=== PATIENT | female | born 1945 | race Caucasian/White ===

== ENCOUNTER → 2016-10-11 | Day surgery (SDC) | payer MEDICARE, OTHER ==
--- NOTE | 2016-10-10 09:54 | MH ---
cc: REINALDO SMITH MD, THOMAS DATE OF ADMISSION: October 11, 2016 DATE OF 1945 REASON FOR ADMISSION Vaginal suspension. HISTORY OF PRESENT ILLNESS The patient is a 71-year-old white female, 3, para 3, who is having issues with pelvic organ prolapse. This was mainly an apical defect, although there is some enterocele component suspected. She had a vaginal hysterectomy and anterior and posterior repair by Dr. Motley in 2013. She has noted increasing issues with pelvic organ pressure and discomfort. She has been using a pessary for the last several months but wants to move to definitive surgical correction. PAST MEDICAL HISTORY 1. Hypertension. 2. Hypothyroidism. 3. Gastroesophageal reflux disease. MEDICATIONS 1. Amlodipine 5 mg daily. 2. Hydrochlorothiazide 12.5 mg daily. 3. Synthroid 50 mcg daily. 4. Omeprazole 20 mg daily. ALLERGIES SULFA MEDS. LISINOPRIL causes cough. PAST SURGICAL HISTORY 1. Cholecystectomy. 2. Hernia repair. 3. Vaginal hysterectomy with anterior and posterior repair. OBSTETRICAL HISTORY Three vaginal deliveries. GYNECOLOGIC HISTORY No STDs or abnormal Pap smears. SOCIAL HISTORY Does not smoke, use alcohol or drugs. She has a 10 pack-year history of smoking but quit in 1978. FAMILY HISTORY Noncontributory. REVIEW OF SYSTEMS As above. No chest pain, orthopnea, PND. No nausea, vomiting, fever or chills. No vaginal bleeding or discharge. Pelvic organ prolapse symptoms are mainly pressure and discomfort. PHYSICAL EXAMINATION Vital Signs: She is afebrile. Vital signs stable. Blood pressure is 150/80. Height 5'3", weight 158, BMI is 28. General: Patient is alert and oriented, in no acute distress. No sign of cognitive dysfunction or depression. HEENT: Within normal limits. Neck: Supple. No JVD. Chest: Clear. Heart: Regular rate and rhythm. Abdomen: Soft, nontender. No hepatosplenomegaly. No CVA tenderness. Pelvic: Exam will be detailed under anesthesia. In the office we note POP-Q score: Aa is -3, Ap is -1. Point C is +2. Levator strength is 3/5 and sacral nerve reflexes are normal. Extremities: Normal skin, without rashes. Neuro: Exam nonfocal. No DVT signs. ASSESSMENT Patient with pelvic organ prolapse, Stage III, apical compartment. The patient and I discussed options for management and treatment. She is aware of the risks, benefits and alternatives of the planned procedure including damage to surrounding organs, bleeding, infection, failure of repair, pain with intercourse, urinary incontinence postoperatively and other issues germane to the procedure. The patient has made informed choice to proceed. We will use DVT prophylaxis with sequential compression device and antibiotic prophylaxis with IV cephalosporin. Anticipate outpatient procedure. MD BENITA Walker/IRENE /9:16 AM /9:53 AM KAI
[~2016-10-11] VITALS: Ht 160 cm; Wt 71.1 kg
[~2016-10-11] MED LIST: ADVI200C5 PO; AMLO5TAB2 PO; CIPR-9 PO; CITRTAB7 PO; COLA100C PO; COLA100C3 PO; COVATAB PO; DO NOT ADM ANY ANTICOAGULANT DRUGS XX PRN; ESTR42.5V VAGINAL; FAMOTIDINE 20 MG/2 ML VIAL ONE; FLUORESCEIN SOD 10% SOLN 500 MG/5 ML AMP ONE; GABA600T PO; HYDR12.56 PO; INSULIN HUMAN REGULAR 1,000 UNITS/10 ML VIAL SQ PRN; KETOROLAC TROMETHAMINE 10 MG TAB PO PRN; KETOROLAC TROMETHAMINE 30 MG/ML (IVP) VIAL IV PUSH PRN; KETOROLAC TROMETHAMINE 60 MG/2 ML (IM) VIAL IM ONE; KETOROLAC TROMETHAMINE 60 MG/2 ML (IM) VIAL IM PRN; LACTATED RINGER'S 1000 ML IV SCH; LEVO.05 PO; LIDOCAINE 1%/EPINEPHrine 1:100,000 SOLN 20 ML VIAL ONE; METHYLENE BLUE 10 MG/ML VIAL ONE; METOPROLOL TARTRATE 25 MG TAB PO PRN; MIDAZOLAM HCL 2 MG/2 ML VIAL ONE; MULT-120 PO; MULT1TAB46 PO; NEOSTIGMINE 3 MG/3 ML SYR IV ONE; NITR100C4 PO; OMEP20CA2 PO; ONDANSETRON HCL 4 MG/2 ML VIAL IV PRN; ONDANSETRON HCL 4 MG/2 ML VIAL IV PUSH ONE; PROPOFOL 200 MG/20 ML AMP IV ONE; PSEU30TA2 PO; SODIUM CHLORID 0.9% 500 ML IV SCH; SUDO60TA2 PO; TURM500C PO; TURM500C3 PO; VITA100021 SL; VITA500C9 CHEW; fentaNYL CITRATE 250 MCG/5 ML AMP ONE
[2016-10-11 06:05] VITALS: BP 131/67; PULSE 81; RESP 16; TEMP 97.1; O2SAT 96
[2016-10-11] MEDS: ceFAZolin 1,000 MG/NS 100 ML IV SCH ×4 (07:18)
[2016-10-11 10:35] VITALS: BP 117/59; PULSE 77; RESP 16; TEMP 97.9; O2SAT 98
--- NOTE | 2016-10-11 13:04 | MP ---
cc: REINALDO SMITH MD, THOMAS G. M.D. DATE OF SURGERY October 11, 2016 PREOPERATIVE DIAGNOSIS Vaginal vault prolapse following prior hysterectomy. POSTOPERATIVE DIAGNOSIS Vaginal vault prolapse following prior hysterectomy with posterior compartment defect with enterocele. PROCEDURE 1. Sacrospinous ligament suspension of vagina. 2. Posterior repair with enterocele repair. SURGEON Dr. Smith ANESTHESIA General endotracheal. BLOOD LOSS 25 cc. URINE OUTPUT 200 cc. SKIN CARE INSTRUCTOR Jenkins staff x 2. FINDINGS External genitalia is normal. POP-Q score: Aa is -3, Ap is 0. Point C is +2. Total vaginal length is 10. Genital hiatus is 5. Perineal body is 5. Following repair, Aa is -3, Ap is -3. Point C is -8. Total vaginal length is 8. Remainder of POP-Q score unchanged. Rectal exam is normal following repair. SPECIMENS None. COMPLICATIONS None. DISPOSITION To recovery room stable. COUNTS Needle and sponge count correct. DRAINS Brown catheter. ANTIBIOTIC PROPHYLAXIS Ancef 1 gram. DVT PROPHYLAXIS Sequential compression device. TIME-OUT PROCEDURE Per protocol SUMMARY OF INDICATIONS FOR PROCEDURE Patient with symptomatic apical vaginal prolapse. The patient wanted to avoid mesh and opted for a vaginal approach to repair. PROCEDURE The patient was taken to the operating theatre, identified, prepped and draped in fashion appropriate for the planned procedure. She was in dorsal lithotomy position with careful attention paid to placement of the of legs in stirrups to avoid undue stress to sensitive neurovascular structures. Above findings noted. Neurovascular integrity documented. Brown catheter was placed. Methylene blue was instilled into the bladder. The posterior and apical defects were identified. The posterior defect was more obvious with the patient under anesthesia than had been noted in the office. The posterior vaginal mucosa was infiltrated with epinephrine/lidocaine solution. Midline incision was made with sharp scissors. With one finger in the rectum to give traction and countertraction, we took this incision up to the vaginal apex. We developed the perirectal space on the right, identified the ischial spine and the sacrospinous ligament. A suture of 0 Prolene was placed using the Capio device through the sacrospinous ligament. A delayed absorbable suture was also used approximately 0.5 cm medial to the Prolene suture. The Prolene suture was affixed to the vaginal apex with a michael type stitch. The delayed absorbable was a simple irgghen-nld-lcodxsm stitch. The remainder of enterocele repair and posterior repair was performed in standard fashion with delayed absorbable suture. The vaginal cuff was trimmed. The vaginal mucosa was closed with a running Vicryl suture. Once we got down to about snf of the vaginal length, we cinched down the support sutures with good support with minimal deviation to the right. The remainder of the incision was closed with a running Vicryl suture. Hemostatic Matrix was used for additional reassurance for hemostasis. Rectal exam confirmed there was no suture bridge nausea nor was there any compromise of the rectum. The suture line was intact and hemostatic. The procedure was concluded. The patient went to Recovery in stable condition. The patient will be discharged for home if she meets criteria with standard postoperative precautions. MD BENITA Walker/IRENE /11:48 AM /12:53 PM
== END | disposition home or self-care (01) ==
LOC: HSDC 05:50
PROVIDERS: ATTEND Obstetrics & Gynecology Gynecology
DX: N99.3 Prolapse of vaginal vault after hysterectomy (principal); I10 Essential (primary) hypertension; Z90.710 Acquired absence of both cervix and uterus
CPT/HCPCS: 00840; 57240; 57282; J0690; J1885; J2250; J2405; J2710; J3010; J7120

== ENCOUNTER → 2017-03-27 | Outpatient (CLI) | payer MEDICARE, OTHER ==
[~2017-03-27] MED LIST changes: -DO NOT ADM ANY ANTICOAGULANT DRUGS XX PRN; -FAMOTIDINE 20 MG/2 ML VIAL ONE; -FLUORESCEIN SOD 10% SOLN 500 MG/5 ML AMP ONE; -GABA600T PO; -INSULIN HUMAN REGULAR 1,000 UNITS/10 ML VIAL SQ PRN; -KETOROLAC TROMETHAMINE 10 MG TAB PO PRN; -KETOROLAC TROMETHAMINE 30 MG/ML (IVP) VIAL IV PUSH PRN; -KETOROLAC TROMETHAMINE 60 MG/2 ML (IM) VIAL IM ONE; -KETOROLAC TROMETHAMINE 60 MG/2 ML (IM) VIAL IM PRN; -LACTATED RINGER'S 1000 ML IV SCH; -LIDOCAINE 1%/EPINEPHrine 1:100,000 SOLN 20 ML VIAL ONE; -METHYLENE BLUE 10 MG/ML VIAL ONE; -METOPROLOL TARTRATE 25 MG TAB PO PRN; -MIDAZOLAM HCL 2 MG/2 ML VIAL ONE; -NEOSTIGMINE 3 MG/3 ML SYR IV ONE; -NITR100C4 PO; -ONDANSETRON HCL 4 MG/2 ML VIAL IV PRN; -ONDANSETRON HCL 4 MG/2 ML VIAL IV PUSH ONE; -PROPOFOL 200 MG/20 ML AMP IV ONE; -SODIUM CHLORID 0.9% 500 ML IV SCH; -fentaNYL CITRATE 250 MCG/5 ML AMP ONE
[2017-03-27 10:48] LABS: AUTOMATED NEUTROPHIL # 3.7 TH/MM3 (1.8-7.7); BASOPHIL % 0.8 % (0.0-2.0); EOSINOPHIL # 0.2 TH/MM3 (0-0.4); EOSINOPHIL % 3.9 % (0.0-4.0); HEMO FLAGS DIFF FINAL; LYMPH % 17.3 % (9.0-44.0); LYMPHOCYTE # 0.9 TH/MM3 (1.0-4.8); MEAN CELL VOLUME 88.3 FL (80.0-100.0); MEAN CORPUSCULAR HEMOGLOBIN 29.5 PG (27.0-34.0); MEAN CORPUSCULAR HGB CONC 33.4 % (32.0-36.0); PLATELET COUNT 315 TH/MM3 (150-450); RED BLOOD COUNT 5.21 MIL/MM3 (4.00-5.30); RED CELL DISTRIBUTION WIDTH 14.4 % (11.6-17.2); WHITE BLOOD COUNT 5.4 TH/MM3 (4.0-11.0)
[2017-03-27 11:11] LABS: ANION GAP 10 MEQ/L (5-15); AST (GOT) 19 U/L (15-37); BICARBONATE 25.6 MEQ/L (21.0-32.0); BLOOD UREA NITROGEN 22 MG/DL (7-18); CHLORIDE 104 MEQ/L (98-107); GLOMERULAR FILTRATION RATE 75 ML/MIN (>89); GLUCOSE,FASTING 79 MG/DL (74-99); POTASSIUM 3.8 MEQ/L (3.5-5.1); SODIUM (NA) 140 MEQ/L (136-145)
[2017-03-27 11:12] LABS: ALT (GPT) 32 U/L (10-53)
[2017-03-27 11:14] LABS: ALKALINE PHOSPHATASE 77 U/L (45-117); TOTAL BILIRUBIN ADULT 0.3 MG/DL (0.2-1.0)
[2017-03-27 11:25] LABS: BLOOD, URINE NEG (NEG); COMMENT (UR) CULT NOT INDICATED; CULTURE IF INDICATED CULT NOT INDICATED; GLUCOSE,URINE NEG (NEG); KETONE, URINE NEG (NEG); NITRITE,URINE NEG (NEG); SQUAMOUS EPITHELIAL CELL URINE <1 /hpf (0-5); URINE COLOR YELLOW (YELLW/STRAW)
--- NOTE | 2017-03-27 16:48 | EKG ---
Date Performed: 03/27/2017 Time Performed: 10:09:56 PTAGE: 71 years EKG: Sinus rhythm POSSIBLE LEFT ATRIAL ENLARGEMENT LOW QRS VOLTAGE IN PRECORDIAL LEADS Since previous tracing, no sign ificant change noted BORDERLINE ECG PREVIOUS TRACING : 10/03/2016 09.52.12 DOCTOR: Gina Muñoz Interpretating Date/Time 03/27/2017 17:25:20
== END ==
LOC: CPRE 09:38
PROVIDERS: ATTEND Obstetrics & Gynecology Gynecology
DX: Z01.812 Encounter for preprocedural laboratory examination (principal); Z01.810 Encounter for preprocedural cardiovascular examination; N81.10 Cystocele, unspecified; R94.31 Abnormal electrocardiogram [ECG] [EKG]
CPT/HCPCS: 36415; 80053; 81001; 85025; 93005

== ENCOUNTER → 2017-04-18 | Day surgery (SDC) | payer MEDICARE, OTHER ==
--- NOTE | 2017-03-28 09:48 | MH ---
cc: REINALDO SMITH MD DATE OF ADMISSION: 04/18/2017 DATE OF : 1945 REASON FOR ADMISSION Anterior repair. HISTORY OF PRESENT ILLNESS The patient is a 71-year-old white female, 3, para 3, who has issues with pelvic organ prolapse. She had a prior hysterectomy with anterior repair in 2013. She had a sacrospinous ligament suspension, posterior repair and enterocele repair in October 2016. She did will post-op but noted recurrence of anterior compartment defect. She has had issues with urinary retention and wants to proceed with repair. PAST MEDICAL HISTORY 1. Hypertension. 2. Hypothyroidism. Otherwise negative for heart, lung, liver disease, diabetes or stroke. MEDICATIONS 1. Amlodipine 5 mg q. daily. 2. Hydrochlorothiazide 12.5 mg q. daily. 3. Synthroid 50 mcg q. daily. ALLERGIES 1. LISINOPRIL. 2. SULFA. PAST SURGICAL HISTORY 1. As above. 2. Appendectomy. 3. Hernia repair. 4. Rhinoplasty. 5. Right hip procedure. 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 Hysterectomy for prolapse. Other surgical procedures for pelvic organ prolapse as well. OB HISTORY Two vaginal deliveries. FAMILY HISTORY Noncontributory. SOCIAL HISTORY She does not smoke, drink alcohol or take drugs. . Good social support. REVIEW OF SYSTEMS As above. Issues with pelvic organ prolapse, pelvic pressure and urinary retention. PHYSICAL EXAMINATION VITAL SIGNS: She is afebrile. Vital signs stable. Blood pressure 120/70. GENERAL: The patient is alert and oriented in no acute distress. No sign of cognitive dysfunction or depression. HEENT: Within normal limits. NECK: Supple. No JVD. CHEST: Clear. HEART: Regular rate and rhythm. ABDOMEN: Soft, nontender. No hepatosplenomegaly. BACK: No CVA tenderness. PELVIC: Exam in the office shows Aa is 0; point C is -8; Ap is -2. Postvoid residual is 180 cc. Further exam under anesthesia. EXTREMITIES: Normal. SKIN: Without rashes. NEUROLOGIC: Nonfocal. No DVT signs. ASSESSMENT Patient with pelvic organ prolapse, anterior compartment defect with retention. PLAN At this point we discussed the risks, benefits and alternatives of the planned procedure including damage to surrounding organs, bleeding, infection, possibility of incontinence as well as dyspareunia. Prolonged catheterization was also discussed. At this point will proceed with anterior compartment repair and cystoscopy for the retention issue. Anticipate outpatient procedure. Will use DVT prophylaxis with sequential compression device and Ancef 2 grams for IV prophylaxis. MD BENITA Walker/ISSA /9:22 AM /9:34 AM
[~2017-04-18] VITALS: Ht 160 cm; Wt 65.5 kg
[~2017-04-18] MED LIST changes: +*morphine SULFATE 8 MG/ML PERIprocedure ONLY ONE; +ACETAMINOPHEN 1000 MG/100 ML VIAL IV ONE; -ADVI200C5 PO; +CHLORHEXIDINE GLUCONATE 2 % 1 PACK (2 CLOTHS) TOPICAL PRN; -CIPR-9 PO; -COLA100C3 PO; +DO NOT ADM ANY ANTICOAGULANT DRUGS PRN; +FLUORESCEIN SOD 10% SOLN 500 MG/5 ML AMP ONE; +IBUP200C17 PO; +INSULIN HUMAN REGULAR 1,000 UNITS/10 ML VIAL SQ PRN; +KETO10 PO; +KETOROLAC TROMETHAMINE 30 MG/ML (IVP) VIAL IV PUSH PRN; +KETOROLAC TROMETHAMINE 60 MG/2 ML (IM) VIAL IM ONE; +LACTATED RINGER'S 1000 ML IV PRN; +LIDOCAINE 1%/EPINEPHrine 1:100,000 SOLN 20 ML VIAL ONE; +MACR100C2 PO; +METHYLENE BLUE 10 MG/ML VIAL OTHER ONE; +METOPROLOL TARTRATE 25 MG TAB PO PRN; +MIDAZOLAM HCL 2 MG/2 ML VIAL ONE; -MULT-120 PO; +ONDANSETRON HCL 4 MG/2 ML VIAL IV PUSH ONE; +ONDANSETRON HCL 4 MG/2 ML VIAL IV PUSH PRN; +POVIDONE IODINE 5% (ANTISEPSIS KIT) 4 APPLICATIONS EACH NARE PRN; +PROPOFOL 200 MG/20 ML AMP IV ONE; -PSEU30TA2 PO; +SODIUM CHLORID 0.9% 500 ML IV PRN; +TRAM50TA PO; -TURM500C PO; +VITA250C3 CHEW; -VITA500C9 CHEW; +ceFAZolin 2 GM PREMIX 50 ML ONE; +ePHEDrine/NS 25 MG/5 ML SYR IV ONE; +traMADol HCL 50 MG TAB PO PRN
[2017-04-18 06:30] VITALS: BP 134/66; PULSE 83; RESP 16; TEMP 97.7; O2SAT 95
--- NOTE | 2017-04-18 10:08 | MP ---
cc: REINALDO SMITH MD DATE OF SURGERY 04/18/2017 PREOPERATIVE DIAGNOSES 1. Cystocele. 2. Urinary retention. POSTOPERATIVE DIAGNOSES 1. Cystocele. 2. Urinary retention. 3. Enterocele. 4. Rectocele. PROCEDURE 1. Anterior and posterior repair. 2. Cystoscopy coupled with a diagnosis of urinary retention. 3. Vaginal apical suspension with coccygeus ligaments. SURGEON MD Talat ANESTHESIA General endotracheal BLOOD LOSS 50 cc RN BARIATRIC [place] staff x 2. FLUIDS 1000 cc crystalloid. URINE OUTPUT 300 cc. FINDINGS External genitalia normal. POP-Q score: Aa is 0, Ap is -1. Point C is -8. Total vaginal length is 10. Genital hiatus is 4. Perineal body is 6. Cystoscopy shows mild trigonitis but no significant etiology noted for obstruction. The urethra was normal. There was no diverticula. There was no obstruction in the urethra. Dome and base of bladder unremarkable except for the mild trigonitis. Ureteral orifices patent x 2. Rectal exam normal following repair. SPECIMENS None. COMPLICATIONS None. DISPOSITION To the recovery room stable. COUNTS Needle and sponge counts correct. DRAINS Brown catheter. CONDITION Patient went to Recovery stable. ANTIBIOTIC PROPHYLAXIS Ancef 2 grams. DVT PROPHYLAXIS Sequential compression device. TIME-OUT PROCEDURE Per protocol. SUMMARY OF INDICATIONS FOR PROCEDURE The patient with a history of vaginal suspension and posterior repair, had developed issues with anterior compartment prolapse and urinary retention. The patient has been managed conservatively with a pessary for several months until she was able to schedule surgery. OPERATIVE PROCEDURE The patient was taken to the operating room theatre, prepped and draped in fashion for the planned procedure. She was in dorsal spine position with careful attention paid to placement of the legs in the stirrups to avoid undue stress to sensitive neurovascular structures. The above findings noted. Neurovascular integrity documented. Pessary removed, Brown catheter placed and methylene blue was instilled into the bladder The anterior compartment was notable for cystocele and anterior enterocele. The vaginal mucosa was grasped with Allis clamps, infiltrated with epinephrine/lidocaine solution. A midline incision was made from the apex to approximately 1 cm from the urethral meatus. Reflection of the bladder was uncomplicated. Cystocele repair performed in standard fashion with delayed absorbable suture. It was felt that the enterocele was best approached through the posterior compartment as there was some degree of apical descent as well and rectocele as well. Cystoscopy performed after the patient received fluorescein dye, 1 cc. Ureteral patency was documented and the above findings noted which showed no significant etiology to her retention other than the anterior compartment prolapse. The vaginal cuff was trimmed and then the vaginal mucosa was closed. The vaginal mucosa was closed with a series of tmpxep-ob-yvlyb sutures until and a running delayed absorbable suture. Hemostatic matrix was used for added reassurance for hemostasis. In the posterior apartment there was enterocele as noted above and some degree of rectocele. The introitus was actually relatively well supported and was a rather robust perineal body. The main repair was done in the upper half of the posterior compartment. Infiltration of epinephrine with lidocaine solution was performed. Midline incision was made. Enterocele was closed with delayed absorbable suture in standard fashion. There was no damage to bowel or rectum. Vaginal mucosa was trimmed. The rectocele was reduced with delayed absorbable suture. The vaginal mucosa was closed with a delayed absorbable suture as well. Hemostatic matrix was used for hemostasis. At this point the procedure was concluded. Suture lines were intact and hemostatic. Pop-Q score was as noted above. We had excellent anterior compartment support with an Aa of -3, Ap in the posterior compartment was -3. point C was 10, total vaginal length was 10. Genital hiatus remained at 5. Rectal exam showed no damage to the rectum. The procedure was concluded. The patient was reversed from anesthesia. She will undergo voiding trial and if meets criteria will be discharged from the PACU. MD BENITA Walker/IRENE /9:42 AM /9:55 AM
[2017-04-18 11:20] VITALS: BP 136/63; PULSE 89; RESP 18; O2SAT 96
== END | disposition home or self-care (01) ==
LOC: HSDC 05:49
PROVIDERS: ATTEND Obstetrics & Gynecology Gynecology
DX: N99.3 Prolapse of vaginal vault after hysterectomy (principal); R33.9 Retention of urine, unspecified; N30.30 Trigonitis without hematuria; I10 Essential (primary) hypertension; E03.9 Hypothyroidism, unspecified
CPT/HCPCS: 00942; 52000; 57260; 57282; J0131; J0690; J1885; J2250; J2270; J2405; J3010; J7120

== ENCOUNTER 2017-04-19 01:17 | Emergency (ER) | payer MEDICARE, OTHER ==
[~2017-04-19] VITALS: Ht 160 cm; Wt 65.0 kg
[~2017-04-19 01:17] MED LIST changes: -*morphine SULFATE 8 MG/ML PERIprocedure ONLY ONE; -ACETAMINOPHEN 1000 MG/100 ML VIAL IV ONE; -CHLORHEXIDINE GLUCONATE 2 % 1 PACK (2 CLOTHS) TOPICAL PRN; -DO NOT ADM ANY ANTICOAGULANT DRUGS PRN; -FLUORESCEIN SOD 10% SOLN 500 MG/5 ML AMP ONE; -INSULIN HUMAN REGULAR 1,000 UNITS/10 ML VIAL SQ PRN; -KETO10 PO; -KETOROLAC TROMETHAMINE 30 MG/ML (IVP) VIAL IV PUSH PRN; -KETOROLAC TROMETHAMINE 60 MG/2 ML (IM) VIAL IM ONE; -LACTATED RINGER'S 1000 ML IV PRN; -LIDOCAINE 1%/EPINEPHrine 1:100,000 SOLN 20 ML VIAL ONE; -MACR100C2 PO; -METHYLENE BLUE 10 MG/ML VIAL OTHER ONE; -METOPROLOL TARTRATE 25 MG TAB PO PRN; -MIDAZOLAM HCL 2 MG/2 ML VIAL ONE; -ONDANSETRON HCL 4 MG/2 ML VIAL IV PUSH ONE; -ONDANSETRON HCL 4 MG/2 ML VIAL IV PUSH PRN; -POVIDONE IODINE 5% (ANTISEPSIS KIT) 4 APPLICATIONS EACH NARE PRN; -PROPOFOL 200 MG/20 ML AMP IV ONE; -SODIUM CHLORID 0.9% 500 ML IV PRN; -TRAM50TA PO; -VITA250C3 CHEW; -ceFAZolin 2 GM PREMIX 50 ML ONE; -ePHEDrine/NS 25 MG/5 ML SYR IV ONE; -traMADol HCL 50 MG TAB PO PRN
[2017-04-19 01:18] VITALS: BP 161/87; PULSE 111; RESP 16; TEMP 98.7; O2SAT 95
[2017-04-19] MEDS ORDERED: VITA250C3 CHEW (01:44)
[2017-04-19] MEDS ORDERED: TRAM50TA PO (01:44)
[2017-04-19] MEDS ORDERED: LIDOCAINE 2% JELLY 30 ML TUBE ONE (02:42)
--- NOTE | 2017-04-19 02:57 | PD ---
HPI Chief Complaint: Complaint Time Seen by Provider: 02:15 Travel History International Travel<30 days: No Contact w/Intl Traveler<30days: No Traveled to known affect area: No History of Present Illness HPI 71 year-old woman, just had a bladder suspension type surgery with Dr. Gilliland today. Since then she has not been able to void. She voided initially following the surgery. She has some lower abdominal discomfort. She also some vaginal bleeding. History Past Medical History Narrative Medical Hypertension Hypothyroidism Previous surgery for pelvic floor relaxation and cystocele Social History Alcohol Use: No Tobacco Use: No Allergies-Medications (Allergen,Severity, Reaction): Coded Allergies: Lisinopril (Verified Allergy, Severe, THROAT SWELLING, ITCHING, 04/18/17) Sulfa (Verified Allergy, Intermediate, UNKNOWN, 04/18/17) Reported Meds & Prescriptions Reported Meds & Active Scripts Active Reported Vitamin C (Ascorbic Acid) 250 Mg Chew 250 Mg CHEW DAILY Tramadol (Tramadol HCl) 50 Mg Tab 50 Mg PO Q6H PRN Advil Liqui-Gels (Ibuprofen) 200 Mg Capsule 200 Mg PO DAILY Pseudoephedrine (Pseudoephedrine HCl) 60 Mg Tab 30 Mg PO DAILY PRN Turmeric (Turmeric (Curcuma Longa)) 500 Mg Cap 1 Cap PO BID Multi Vitamin Daily (Multiple Vitamin) 1 Tab Tab 1 Tab PO DAILY Estrace Vaginal (Estradiol) 0.01% Cream 1 Gm VAGINAL EVERY OTHER DAY PRN Colace (Docusate Sodium) 100 Mg Capsule 1 Cap PO BID Citracal + D3 Maximum (Calcium Citrate-Vitamin D) 315-250 Mg-Unit Tab 1 Tab PO BID Vitamin B-12 (Cyanocobalamin) 1,000 Mcg Subl 1,000 Mcg SL DAILY Omeprazole 20 Mg Cap 20 Mg PO BID Synthroid (Levothyroxine Sodium) 50 Mcg Tab 50 Mcg PO HS Covaryx Hs (Estrogens, Esterified-Methyltestosterone) 0.625-1.25 Mg Tab PO DAILY Hydrochlorothiazide 12.5 Mg Tab 12.5 Mg PO DAILY Amlodipine (Amlodipine Besylate) 5 Mg Tab 5 Mg PO DAILY Review of Systems Except as stated in HPI: all other systems reviewed are Neg Physical Exam Narrative GENERAL: Well-appearing 71 year-old woman, no acute distress. SKIN: Focused skin assessment warm/dry. CARDIOVASCULAR: Regular rate and rhythm. No murmur appreciated. RESPIRATORY: No accessory muscle use. Clear to auscultation. Breath sounds equal bilaterally. GASTROINTESTINAL: Abdomen soft, non-tender, nondistended. Hepatic and splenic margins not palpable. : A lot of irritation of the vaginal introitus and some bleeding. MUSCULOSKELETAL: No obvious deformities. Data Data Last Documented VS Vital Signs Date Time Temp Pulse Resp B/P Pulse Ox O2 Delivery O2 Flow Rate FiO2 04/19/17 01:18 98.7 111 16 161/87 95 Room Air Orders Ed Poc Ultrasound (04/19/17 ) Urinary Catheter Insert/Apply (04/19/17 02:39) Lidocaine 2% Jelly (Xylocaine 2% Jelly) (04/19/17 02:42) MDM Medical Decision Making Medical Screen Exam Complete: Yes Emergency Medical Condition: Yes Differential Diagnosis Urinary retention, injury to the bladder, other Narrative Course Medical decision making This 71-year-old woman who presents to the emergency department with what appears to be acute urinary retention. He spoke with noa Curry for Brown catheter placement in follow-up in his office tomorrow. Procedures Procedure Narrative Point of care ultrasound: Focus transabdominal ultrasounds perform immediate the bedside to evaluate for bladder distention. His approximate 500 mL some urine in the bladder. Diagnosis Primary Impression: Acute urinary retention Additional Instructions: Follow-up with Dr. Gilliland tomorrow. Return to the emergency department for any new or worsening symptoms. Med/Other Pt SpecificInfo: No Change to Meds Disposition: 01 DISCHARGE HOME Condition: Stable Luis Haynes MD Apr 19, 2017 02:57
[2017-04-19] MEDS ORDERED: MACR100C2 PO (11:11)
[2017-04-19] MEDS ORDERED: KETO10 PO (11:11)
== END 2017-04-19 03:26 | disposition home or self-care (01) ==
LOC: NEPC 01:17
DX: R33.9 Retention of urine, unspecified (principal); I10 Essential (primary) hypertension; E03.9 Hypothyroidism, unspecified; Z79.899 Other long term (current) drug therapy; Z88.2 Allergy status to sulfonamides; Z88.8 Allergy status to other drugs, medicaments and biological substances
CPT/HCPCS: 51702